=== PATIENT | male | born 1985 | race Two or more races ===

== ENCOUNTER 2017-02-23 03:31 | Emergency (ER) | payer BC ==
[~2017-02-23] VITALS: Ht 170.2 cm; Wt 81.6 kg
--- NOTE | 2017-02-23 03:40 | NUR ---
PT PRESENTED TO THE ER WITH A C/O LEFT SIDED PRESSURE, SQUEEZING THAT RADIATES TO AND FROM THE EPIGASTRIC/LOWER STERNUM AREA. PT STATED THAT HE HAS BUE INNER ARM WEAKNESS. PT IS ABLE TO MOVE THE ARMS AND HANDS/FINGERS. PT IS ON THE MONITOR AND CONTINUOUS PULSE OX.
--- NOTE | 2017-02-23 03:49 | NUR ---
DR. LOWE IS AT THE BEDSIDE.
--- NOTE | 2017-02-23 03:58 | NUR ---
CXR IN PROGRESS AT THE BEDSIDE.
[2017-02-23] MEDS ORDERED: KETOROLAC TROMETHAMINE 15 MG/ML VIAL ONE (04:00)
[2017-02-23] MEDS ORDERED: KETOROLAC TROMETHAMINE INJ 30 MG/ML VIAL IV ONE (04:00)
--- NOTE | 2017-02-23 04:07 | NUR ---
PT APPEARS TO BE RESTING COMFORTABLY. PT APPEARS PALE AND TIRED. PT IS ON THE MONITOR AND CONTINUOUS PULSE OX. RESP EVEN AND UNLABORED.
[2017-02-23 04:11] LABS: BASOPHILS % (AUTO) 0.3 % (0.0-2.0); EOSINOPHILS # (AUTO) 0.2 /CMM (0.0-0.7); EOSINOPHILS % (AUTO) 3.3 % (0.0-6.0); HEMATOCRIT 40 % (39-51); HEMOGLOBIN 13.6 g/dL (13.5-17.5); LYMPHOCYTES # (AUTO) 2.2 /CMM (0.8-4.8); LYMPHOCYTES % (AUTO) 32.9 % (20.0-44.0); MEAN CORPUSCULAR HEMOGLOBIN 29 PG (26.0-33.0); MEAN CORPUSCULAR HGB CONC 34 g/dl (31.0-36.0); MEAN CORPUSCULAR VOLUME 86 fL (80-96); MONOCYTES # (AUTO) 0.6 /CMM (0.1-1.30); MONOCYTES % (AUTO) 8.4 % (2.0-12.0); NEUTROPHILS # (AUTO) 3.7 /CMM (1.8-8.9); NEUTROPHILS % (AUTO) 55.1 % (43.0-81.0); PLATELET COUNT (AUTO) 255 /CMM (150-450); RED BLOOD CELL COUNT(AUTO) 4.68 MIL/uL (4.5-6.0); WHITE BLOOD COUNT (AUTO) 6.8 K/uL (4.3-11.0)
--- NOTE | 2017-02-23 04:18 | NUR ---
PT REC'D A CUP OF WATER AND TOLERATED PO WELL. NO N/V NOTED.
[2017-02-23 04:29] LABS: CALCIUM, SERUM 8.4 mg/dL (8.5-10.1); CARBON DIOXIDE 28 mmol/L (21-32); CHLORIDE 105 mmol/L (98-107); CREATININE 1.2 mg/dL (0.6-1.3); GFR 70 mL/min (>60); GLUCOSE 122 mg/dL (74-106); POTASSIUM 4.1 mmol/L (3.5-5.1); SODIUM SERUM 140 mmol/L (136-145); UREA NITROGEN, BLOOD 17 mg/dL (7-18)
[2017-02-23 04:33] LABS: D-DIMER 0.19 mg/L(FEU (0.17-0.50); INR 0.97 (0.87-1.13); PROTHROMBIN TIME 10.4 SECS (9.5-12.7)
[2017-02-23 04:37] LABS: TROPONIN I < 0.017 ng/mL (0.00-0.056)
--- NOTE | 2017-02-23 04:48 | NUR ---
IV removed. Catheter intact and site benign. Pressure and 4x4 applied to site. No bleeding noted.Patient discharged to home in stable condition. Written and verbal after care instructions given. Patient verbalizes understanding of instruction. PT AMBULATED OUT WITH A STEADY GAIT. PT'S GIRLFRIEND IS DRIVING PT HOME. VSS. NAD NOTED.
[2017-02-23 04:49] VITALS: BP 135/91
== END 2017-02-23 04:47 | disposition home or self-care (01) ==
LOC: ER 03:33
DX: R07.89 Other chest pain (principal); F41.9 Anxiety disorder, unspecified
CPT/HCPCS: 36415; 71010-TC; 80048-TC; 84484-TC; 85025-TC; 85378-TC; 85730-TC; A4606; J1885; Z7610